=== PATIENT | female | born 1960 | race Caucasian/White ===

== ENCOUNTER 2017-06-28 18:35 | Emergency (ER) | payer BC ==
[~2017-06-28] VITALS: Ht 167.6 cm; Wt 63.6 kg
[2017-06-28 18:39] VITALS: TEMP 97.8
[2017-06-28 19:17] LABS: BASO % 0.5 % (0.0-2.0); EOS # 0.1 (0.0-0.7); EOS % 1.6 % (0-4.0); GRAN # 4.9 (1.4-6.5); GRAN % 66.9 % (42.2-75.2); HEMATOCRIT 39.4 % (37.0-47.0); HEMOGLOBIN 13.5 g/dl (12.5-16.0); LYMPH # 1.8 (1.2-3.4); LYMPH % 24.3 % (20.0-51.0); MEAN CELL VOLUME 92 fl (80.0-100.0); MEAN CORPUSCULAR HEMOGLOBIN 32 pg (27.0-31.0); MEAN CORPUSCULAR HGB CONC 34 g/dl (33.0-37.0); MEAN PLATELET VOLUME 8.8 fl (7.4-10.4); MONO # 0.5 (0.1-0.6); MONO % 6.4 % (1.7-9.3); PLATELET COUNT 209 K/mm3 (130-400); RED BLOOD COUNT 4.28 M/mm3 (4.10-5.30); REDCELL DISTRIBUTION WIDTH-CV 12.2 % (11.5-14.5); WHITE BLOOD COUNT 7.4 K/mm3 (4.8-10.8)
[2017-06-28 19:32] LABS: ADJUSTED CALCIUM 9.4 mg/dL (8.4-10.2); ALANINE AMINOTRANSFERASE 31 U/L (9-52); ALBUMIN 4.7 gm/dL (3.5-5.0); ALKALINE PHOSPHATASE 83 U/L (50-136); ANION GAP 11 mmol/L (7-16); BILIRUBIN,TOTAL 0.6 mg/dL (0.0-1.0); BLOOD UREA NITROGEN 18 mg/dL (7-17); CARBON DIOXIDE 26 mmol/L (22-30); CHLORIDE 103 mmol/L (98-107); CREATININE, serum 0.79 mg/dL (0.52-1.25); GLUCOSE 99 mg/dL (74-106); LIPASE 56 U/L (23-300); POTASSIUM 3.9 mmol/L (3.4-5.0); SODIUM 140 mmol/L (137-145); TOTAL PROTEIN 7.6 gm/dL (6.4-8.2)
[2017-06-28 19:34] LABS: C-REACTIVE PROTEIN < 0.5 mg/dL (0.0-0.9)
[2017-06-28] MEDS ORDERED: NORCO 325 MG-51 TAB PO (20:32)
[2017-06-28 21:03] VITALS: BP 216/76; PULSE 69
== END 2017-06-28 21:03 | disposition home or self-care (01) ==
LOC: COL.ER 18:35
PROVIDERS: Family Medicine
DX: K43.9 Ventral hernia without obstruction or gangrene (principal)
CPT/HCPCS: J1170; J2060; J2405; J7030; Q9967

== ENCOUNTER 2017-07-21 10:32 | Day surgery (SDC) | payer BC ==
[2017-07-21] VITALS (7 sets, daily range): BP systolic 93–122; BP diastolic 54–77; PULSE 51–74; TEMP 97.5–97.9
[~2017-07-21] VITALS: Ht 167.6 cm; Wt 64.9 kg
[~2017-07-21 10:32] MED LIST: NORCO 325 MG-51 TAB PO
[2017-07-21] MEDS ORDERED: NORCO 325 MG-51 TAB PO (16:43)
== END 2017-07-21 17:59 | disposition home or self-care (01) ==
LOC: SDCO 10:32
DX: K43.6 Other and unspecified ventral hernia with obstruction, without gangrene (principal); Z83.3 Family history of diabetes mellitus; Z80.1 Family history of malignant neoplasm of trachea, bronchus and lung
CPT/HCPCS: C1781; J0690; J1100; J1885; J2270; J2405; J2704; J7120

== ENCOUNTER → 2017-10-12 | Outpatient (CLI) | payer BC | LOC: MC.RAD 09-11 14:40 | DX: Z12.31 Encounter for screening mammogram for malignant neoplasm of breast (principal) ==

== ENCOUNTER → 2019-01-11 | Outpatient (CLI) | payer BC | LOC: MC.RAD 09:30 | DX: Z12.31 Encounter for screening mammogram for malignant neoplasm of breast (principal) ==

== ENCOUNTER → 2020-02-24 | Outpatient (CLI) | payer BC | LOC: MC.RAD 16:43 | DX: Z12.31 Encounter for screening mammogram for malignant neoplasm of breast (principal) ==

== ENCOUNTER → 2021-04-18 | Outpatient (CLI) | payer BC | LOC: MC.RAD 13:28 | DX: Z12.31 Encounter for screening mammogram for malignant neoplasm of breast (principal) ==

== ENCOUNTER → 2024-03-29 | Outpatient (CLI) | payer OTHER | LOC: MC.RAD 13:30 | DX: Z12.31 Encounter for screening mammogram for malignant neoplasm of breast (principal) ==